=== PATIENT | female | born 1935 | race Caucasian/White ===

== ENCOUNTER → 2018-05-01 | Outpatient (CLI) | payer OTHER | END | disposition home or self-care (01) | LOC: CFH 12:46 | PROVIDERS: ATTEND Internal Medicine Hematology & Oncology | DX: C50.912 Malignant neoplasm of unspecified site of left female breast (principal) | CPT/HCPCS: 77066 ==

== ENCOUNTER → 2018-05-10 | Outpatient (CLI) | payer OTHER | END | disposition home or self-care (01) | LOC: CFH 13:33 | PROVIDERS: ATTEND Internal Medicine Hematology & Oncology | DX: C50.412 Malignant neoplasm of upper-outer quadrant of left female breast (principal) ==

== ENCOUNTER 2018-06-21 04:01 | Inpatient (IN) | payer MEDICARE, OTHER ==
[~2018-06-21] VITALS: Ht 152.4 cm; Wt 61.9 kg
[2018-06-21] MEDS ORDERED: ASPIRIN 325 MG TABLET ONE (04:16)
[2018-06-21] MEDS ORDERED: LOSA50TA7 PO (04:25)
[2018-06-21] MEDS ORDERED: LEVO88TA4 PO (04:25)
[2018-06-21] MEDS ORDERED: ATEN25TA PO (04:25)
[2018-06-21 04:31] LABS: BASOPHILS # (AUTO) 0.03 x10^3/uL (0-0.1); BASOPHILS % (AUTO) 0 % (0-1); EOSINOPHILS # (AUTO) 0.01 x10^3/uL (0-0.4); EOSINOPHILS % (AUTO) 0 % (1-7); LYMPHOCYTES # (AUTO) 1.98 x10^3/uL (1-3.4); LYMPHOCYTES % (AUTO) 21 % (22-44); MD NO; MEAN CORPUSCULAR HEMOGLOBIN 30.3 pg (27.0-34.8); MEAN CORPUSCULAR HGB CONC 32.5 g/dL (32.4-35.8); MEAN CORPUSCULAR VOLUME 93.1 fL (80-100); MEAN PLATELET VOLUME 9.4 fL (7.4-10.4); MONOCYTES # (AUTO) 0.64 x10^3/uL (0.2-0.8); MONOCYTES % (AUTO) 7 % (2-9); NEUTROPHILS # (AUTO) 6.75 x10^3/uL (1.8-6.8); NEUTROPHILS % (AUTO) 72 % (42-75); PLATELET COUNT 245 x10^3/uL (130-400); RED CELL DISTRIBUTION WIDTH 15.8 % (9.6-15.2)
[2018-06-21 04:41] LABS: INTERNATIONAL NORMALIZED RATIO 1.24 (0.93-1.1)
[2018-06-21 04:44] LABS: ALANINE AMINOTRANSFERASE 58 U/L (12-78); ALBUMIN 3.8 g/dL (3.4-5.0); ANION GAP 12 mmol/L (5-15); CALCIUM 9.1 mg/dL (8.5-10.1); CHLORIDE 98 mmol/L (98-107); CREATININE 1.82 mg/dL (0.55-1.02)
[2018-06-21] MEDS ORDERED: MIDAZOLAM 1 MG/ML, 2ML ONE (04:48)
[2018-06-21] MEDS ORDERED: VERAPAMIL 2.5 MG/ML, 2ML ONE (04:48)
[2018-06-21] MEDS ORDERED: BIVALIRUDIN 250 MG ONE (04:48)
[2018-06-21] MEDS ORDERED: HEPARIN 1,000 UNITS/ML, 10ML ONE (04:48)
[2018-06-21] MEDS ORDERED: NITROGLYCERIN 5 MG/ML, 10ML ONE (04:48)
[2018-06-21] MEDS ORDERED: TICAGRELOR 90 MG TABLET ONE (04:48)
[2018-06-21] MEDS ORDERED: FENTANYL PF 100 MCG/2ML ONE (04:48)
[2018-06-21 04:49] LABS: ALKALINE PHOSPHATASE 65 U/L (45-117)
[2018-06-21 04:50] LABS: TROPONIN I 0.123 ng/mL (0.000-0.045)
[2018-06-21] MEDS ORDERED: FUROSEMIDE 40 MG/4 ML ONE (05:15)
[2018-06-21] MEDS ORDERED: hydrALAzine 20 MG/ML, 1ML ONE (05:18)
[2018-06-21] MEDS ORDERED: ACETAMINOPHEN 325 MG TABLET PO PRN (05:30)
[2018-06-21] MEDS ORDERED: ZOLPIDEM 5MG TABLET PO PRN (05:30)
[2018-06-21] MEDS ORDERED: hydrALAzine 20 MG/ML, 1ML IV PRN (05:30)
[2018-06-21] MEDS ORDERED: FUROSEMIDE 40 MG TABLET ONE (08:08)
[2018-06-21] MEDS ORDERED: CARVEDILOL 12.5 MG TABLET ONE (08:08)
[2018-06-21] MEDS: LOSARTAN 50MG TABLET PO SCH ×2 (08:14→20:10)
[2018-06-21] MEDS: ASPIRIN 81 MG TABLET EC PO SCH (08:14)
[2018-06-21] MEDS: CARVEDILOL 6.25 MG TABLET PO SCH ×2 (08:27→18:23)
[2018-06-21] MEDS: FUROSEMIDE 40 MG TABLET PO SCH (08:27)
[2018-06-21] MEDS ORDERED: METOPROLOL TARTRATE 50 MG TABLET PO ONE (09:00)
[2018-06-21] MEDS ORDERED: LOSARTAN 50MG TABLET PO SCH (09:00)
[2018-06-21] MEDS ORDERED: FUROSEMIDE 40 MG/4 ML IV SCH (09:00)
[2018-06-22 04:35] VITALS: BP 131/58
[2018-06-22 05:05] LABS: CHLORIDE 95 mmol/L (98-107)
[2018-06-22 05:10] LABS: ANION GAP 11 mmol/L (5-15); CALCIUM 8.5 mg/dL (8.5-10.1); CREATININE 1.86 mg/dL (0.55-1.02)
[2018-06-22] MEDS: CARVEDILOL 6.25 MG TABLET PO SCH ×2 (05:39→18:02)
[2018-06-22] MEDS: LOSARTAN 50MG TABLET PO SCH ×2 (07:55→20:18)
[2018-06-22] MEDS: ASPIRIN 81 MG TABLET EC PO SCH (07:55)
[2018-06-22] MEDS: FUROSEMIDE 40 MG TABLET PO SCH (07:55)
[2018-06-22 10:21] VITALS: BP 124/72
[2018-06-22 12:55] VITALS: BP 154/87
[2018-06-22 18:54] VITALS: BP 106/66
[2018-06-22 20:15] VITALS: BP 133/73
[2018-06-23 00:46] VITALS: BP 146/73
[2018-06-23 06:00] LABS: ANION GAP 6 mmol/L (5-15); CALCIUM 8.4 mg/dL (8.5-10.1); CHLORIDE 96 mmol/L (98-107); CREATININE 1.73 mg/dL (0.55-1.02)
[2018-06-23 06:30] VITALS: BP 147/78
[2018-06-23] MEDS: CARVEDILOL 6.25 MG TABLET PO SCH ×2 (06:34→21:40)
[2018-06-23 07:26] VITALS: BP 136/79
[2018-06-23] MEDS: LOSARTAN 50MG TABLET PO SCH ×2 (07:26→21:40)
[2018-06-23] MEDS: ASPIRIN 81 MG TABLET EC PO SCH (07:26)
[2018-06-23] MEDS: FUROSEMIDE 40 MG TABLET PO SCH (07:26)
[2018-06-23] MEDS ORDERED: POTASSIUM CHLORIDE 20 MEQ TAB.ER.PRT PO ONE (09:30)
[2018-06-23 13:50] VITALS: BP 131/83
[2018-06-23 18:58] VITALS: BP 131/64
[2018-06-23 21:38] VITALS: BP 150/86
[2018-06-24] VITALS (8 sets, daily range): BP systolic 90–144; BP diastolic 59–82
[2018-06-24] MEDS: CARVEDILOL 6.25 MG TABLET PO SCH ×2 (05:36→18:10)
[2018-06-24] MEDS: ASPIRIN 81 MG TABLET EC PO SCH (08:55)
[2018-06-24] MEDS: FUROSEMIDE 40 MG TABLET PO SCH (08:55)
[2018-06-24] MEDS: LOSARTAN 50MG TABLET PO SCH ×2 (08:56→20:05)
[2018-06-25 01:08] VITALS: BP 110/71
[2018-06-25] MEDS: CARVEDILOL 6.25 MG TABLET PO SCH (04:34)
[2018-06-25 07:33] VITALS: BP 99/64
[2018-06-25 09:25] VITALS: BP 100/66
[2018-06-25] MEDS: FUROSEMIDE 40 MG TABLET PO SCH (09:33)
[2018-06-25] MEDS: LOSARTAN 50MG TABLET PO SCH (09:33)
[2018-06-25] MEDS: ASPIRIN 81 MG TABLET EC PO SCH (09:33)
[2018-06-25] MEDS ORDERED: ASPI-621 PO (10:48)
[2018-06-25] MEDS ORDERED: POTA8CAP PO (10:48)
[2018-06-25] MEDS ORDERED: CARV6.2512 PO (10:48)
[2018-06-25] MEDS ORDERED: LOSA50TA7 PO (10:48)
[2018-06-25] MEDS ORDERED: FURO20TA3 PO (10:48)
[2018-06-25] MEDS ORDERED: ATOR10TA9 PO (10:56)
== END 2018-06-25 15:11 | disposition home or self-care (01) | DRG 286 ==
LOC: ED 04:16 → MERGE 04:16 → EDIP 04:21 → CCU 05:46 → 5SO 06-22 10:12
PROVIDERS: ADMIT Internal Medicine; ATTEND Internal Medicine
PROC: 4A023N7 Measurement of Cardiac Sampling and Pressure, Left Heart, Percutaneous Approach (ICD-10-PCS; principal; 2018-06-21)
PROC: B2111ZZ Fluoroscopy of Multiple Coronary Arteries using Low Osmolar Contrast (ICD-10-PCS; 2018-06-21)
PROC: B2151ZZ Fluoroscopy of Left Heart using Low Osmolar Contrast (ICD-10-PCS; 2018-06-21)
DX: I11.0 Hypertensive heart disease with heart failure (principal); I50.21 Acute systolic (congestive) heart failure; I42.9 Cardiomyopathy, unspecified; I25.10 Atherosclerotic heart disease of native coronary artery without angina pectoris; E03.9 Hypothyroidism, unspecified; N28.9 Disorder of kidney and ureter, unspecified; E78.5 Hyperlipidemia, unspecified; I34.0 Nonrheumatic mitral (valve) insufficiency; I27.20 Pulmonary hypertension, unspecified; Z87.891 Personal history of nicotine dependence; D15.1 Benign neoplasm of heart
CPT/HCPCS: 36415; 71045; 80048; 80053; 83605; 83880; 84484; 85025; 85610; 87081; 93005; 93306; 93458; 97162; 99156; 99291; C1760; C1769; C1894; G0378; J0583; J1644; J1940; J2250; J3010; C1887; J0360; Q9967

== ENCOUNTER 2018-06-28 15:42 | Inpatient (IN) | payer OTHER ==
[~2018-06-28] VITALS: Ht 154.9 cm; Wt 64.3 kg
[~2018-06-28 15:42] MED LIST: ASPI81TA45 PO; ATEN25TA PO; ATOR10TA9 PO; CARV6.2512 PO; FURO20TA3 PO; LEVO88TA4 PO; LOSA50TA7 PO; POTA8CAP PO
[2018-06-28] MEDS ORDERED: SODIUM CHLORIDE FLUSH 10ML SYR IVF ONE (16:00)
[2018-06-28 16:15] LABS: MEAN CORPUSCULAR HEMOGLOBIN 30.3 pg (27.0-34.8); MEAN CORPUSCULAR HGB CONC 32.6 g/dL (32.4-35.8); MEAN CORPUSCULAR VOLUME 93.1 fL (80-100); MEAN PLATELET VOLUME 8.9 fL (7.4-10.4); PLATELET COUNT 228 x10^3/uL (130-400); RED BLOOD COUNT 4.09 x10^6/uL (3.82-5.3); RED CELL DISTRIBUTION WIDTH 16.2 % (9.6-15.2)
[2018-06-28 16:27] LABS: ANION GAP 11 mmol/L (5-15); CALCIUM 8.8 mg/dL (8.5-10.1); CHLORIDE 92 mmol/L (98-107); CREATININE 1.25 mg/dL (0.55-1.02)
[2018-06-28 16:33] LABS: MD YES
[2018-06-28 16:35] LABS: TROPONIN I 0.926 ng/mL (0.000-0.045)
[2018-06-28 16:36] LABS: BAND#(MANUAL) 2.94 x10^3/uL; BANDS%(MANUAL) 14 % (0-7); LYMPH#(MANUAL) 0.84 x10^3/uL (1-3.4); LYMPHS% (MANUAL) 4 % (22-44); MONOS#(MANUAL) 1.47 x10^3/uL (0.3-2.7); MONOS% (MANUAL) 7 % (2-9); SEG#(MANUAL) 15.75 x10^3/uL (1.8-6.8); SEGS% (MANUAL) 75 % (42-75)
[2018-06-28 16:37] LABS: <PLATELET ESTIMATE> ADEQUATE; <PLT MORPHOLOGY> NORMAL PLT MORPH; ANISOCYTOSIS 1+
[2018-06-28] MEDS ORDERED: SODIUM CHLORIDE 0.9% 1,000 ML IV ONE ×2 (16:55→17:19)
[2018-06-28] MEDS ORDERED: SODIUM CHLORIDE FLUSH 10ML SYR IVF PRN (17:30)
[2018-06-28] MEDS ORDERED: SODIUM CHLORIDE 0.9% 1,000 ML IV SCH (17:44)
[2018-06-28] MEDS ORDERED: MAALOX/HYOSCYAMINE/LIDOCAINE 45 ML BTL PO PRN (18:00)
[2018-06-28] MEDS ORDERED: ACETAMINOPHEN 325 MG TABLET PO PRN (18:00)
[2018-06-28] MEDS ORDERED: PHARMACY MAY ADJ FOR RENAL FX MC PRN (18:00)
[2018-06-28] MEDS ORDERED: hydrALAzine 20 MG/ML, 1ML IVPush PRN (18:00)
[2018-06-28 18:07] LABS: CULTURE INDICATED? YES; MICROSCOPIC INDICATED
[2018-06-28 18:43] VITALS: BP 124/76
[2018-06-28 21:25] LABS: TROPONIN I 0.707 ng/mL (0.000-0.045)
[2018-06-28] MEDS: CEFTRIAXONE PMX 1GM/50ML 50 ML IV SCH (22:39)
[2018-06-28] MEDS: ATORVASTATIN 10 MG TABLET PO SCH (22:39)
[2018-06-28] MEDS: PANTOPRAZOLE 40 MG IV IVPush SCH (22:39)
[2018-06-28] MEDS: HEPARIN 5,000 UNITS/ML, 1ML SQ SCH (22:40)
[2018-06-28] MEDS: CARVEDILOL 6.25 MG TABLET PO SCH (22:45)
[2018-06-29] VITALS (9 sets, daily range): BP systolic 96–126; BP diastolic 62–79
[2018-06-29] MEDS: CARVEDILOL 6.25 MG TABLET PO SCH ×2 (06:09→18:01)
[2018-06-29 07:45] LABS: CHLORIDE 94 mmol/L (98-107)
[2018-06-29 07:51] LABS: ANION GAP 10 mmol/L (5-15); CALCIUM 8.7 mg/dL (8.5-10.1); CREATININE 1.33 mg/dL (0.55-1.02)
[2018-06-29 07:54] LABS: MEAN CORPUSCULAR HEMOGLOBIN 30.7 pg (27.0-34.8); MEAN CORPUSCULAR HGB CONC 33.1 g/dL (32.4-35.8); MEAN CORPUSCULAR VOLUME 92.9 fL (80-100); MEAN PLATELET VOLUME 8.9 fL (7.4-10.4); PLATELET COUNT 199 x10^3/uL (130-400); RED BLOOD COUNT 4.02 x10^6/uL (3.82-5.3)
[2018-06-29 08:48] LABS: MD YES
[2018-06-29 08:52] LABS: <RBC MORPHOLOGY> NORMAL; BAND#(MANUAL) 2.76 x10^3/uL; BANDS%(MANUAL) 14 % (0-7); LYMPH#(MANUAL) 0.79 x10^3/uL (1-3.4); LYMPHS% (MANUAL) 4 % (22-44); MONOS#(MANUAL) 0.79 x10^3/uL (0.3-2.7); MONOS% (MANUAL) 4 % (2-9); SEG#(MANUAL) 15.37 x10^3/uL (1.8-6.8); SEGS% (MANUAL) 78 % (42-75)
[2018-06-29 08:53] LABS: <PLATELET ESTIMATE> ADEQUATE; <PLT MORPHOLOGY> NORMAL PLT MORPH
[2018-06-29] MEDS: LOSARTAN 50MG TABLET PO SCH (10:55)
[2018-06-29] MEDS: ASPIRIN 81 MG TABLET EC PO SCH (10:55)
[2018-06-29] MEDS: LEVOTHYROXINE 88 MCG TABLET PO SCH (10:56)
[2018-06-29] MEDS: HEPARIN 5,000 UNITS/ML, 1ML SQ SCH ×2 (10:57→20:26)
[2018-06-29] MEDS: PANTOPRAZOLE 40 MG IV IVPush SCH ×2 (10:58→20:26)
[2018-06-29] MEDS: DILTIAZEM 5 MG/ML, 5ML IVPush ONE ×2 (13:00→14:24)
[2018-06-29] MEDS: DILTIAZEM 125 MG in SODIUM CHLORIDE 0.9% 100 ML IV SCH ×2 (13:00→14:24)
[2018-06-29 14:03] LABS: CLOSTRIDIUM DIFFICILE ANTIGEN NEGATIVE; CLOSTRIDIUM DIFFICILE TOXIN NEGATIVE (Negative)
[2018-06-29] MEDS ORDERED: DIGOXIN 0.25 MG/ML, 2ML IVPush ONE (14:30)
[2018-06-29] MEDS: ATORVASTATIN 10 MG TABLET PO SCH (20:26)
[2018-06-29] MEDS: CEFTRIAXONE PMX 1GM/50ML 50 ML IV SCH (23:36)
[2018-06-30 01:17] VITALS: BP 115/68
[2018-06-30 06:05] VITALS: BP 117/77
[2018-06-30] MEDS: CARVEDILOL 6.25 MG TABLET PO SCH ×2 (06:09→17:39)
[2018-06-30] MEDS: HEPARIN 5,000 UNITS/ML, 1ML SQ SCH ×3 (06:09→21:33)
[2018-06-30 07:00] VITALS: BP 106/63
[2018-06-30 08:39] LABS: BASOPHILS # (AUTO) 0.03 x10^3/uL (0-0.1); BASOPHILS % (AUTO) 0 % (0-1); EOSINOPHILS # (AUTO) 0.05 x10^3/uL (0-0.4); EOSINOPHILS % (AUTO) 0 % (1-7); LYMPHOCYTES # (AUTO) 1.16 x10^3/uL (1-3.4); LYMPHOCYTES % (AUTO) 7 % (22-44); MD NO; MEAN CORPUSCULAR HEMOGLOBIN 30.4 pg (27.0-34.8); MEAN CORPUSCULAR HGB CONC 32.5 g/dL (32.4-35.8); MEAN CORPUSCULAR VOLUME 93.4 fL (80-100); MEAN PLATELET VOLUME 8.8 fL (7.4-10.4); MONOCYTES % (AUTO) 5 % (2-9); NEUTROPHILS # (AUTO) 15.52 x10^3/uL (1.8-6.8); NEUTROPHILS % (AUTO) 88 % (42-75); PLATELET COUNT 202 x10^3/uL (130-400); RED CELL DISTRIBUTION WIDTH 16.2 % (9.6-15.2)
[2018-06-30 08:52] LABS: ALANINE AMINOTRANSFERASE 17 U/L (12-78); ALBUMIN 2.4 g/dL (3.4-5.0); ANION GAP 8 mmol/L (5-15); CALCIUM 8.5 mg/dL (8.5-10.1); CHLORIDE 96 mmol/L (98-107); CREATININE 1.22 mg/dL (0.55-1.02)
[2018-06-30 08:54] LABS: ALKALINE PHOSPHATASE 65 U/L (45-117); BILIRUBIN,TOTAL 0.5 mg/dL (0.2-1.0)
[2018-06-30] MEDS: LEVOTHYROXINE 88 MCG TABLET PO SCH (10:41)
[2018-06-30] MEDS: PANTOPRAZOLE 40 MG IV IVPush SCH ×2 (10:41→21:33)
[2018-06-30] MEDS: ASPIRIN 81 MG TABLET EC PO SCH (10:41)
[2018-06-30] MEDS: LOSARTAN 50MG TABLET PO SCH (10:41)
[2018-06-30 15:47] VITALS: BP 109/71
[2018-06-30 19:01] VITALS: BP 111/75
[2018-06-30] MEDS: ATORVASTATIN 10 MG TABLET PO SCH (21:33)
[2018-06-30] MEDS: CEFTRIAXONE PMX 1GM/50ML 50 ML IV SCH (22:38)
[2018-07-01 01:40] VITALS: BP 117/69
[2018-07-01 05:12] LABS: CHLORIDE 98 mmol/L (98-107)
[2018-07-01 05:21] LABS: ALANINE AMINOTRANSFERASE 15 U/L (12-78); ALKALINE PHOSPHATASE 60 U/L (45-117); ANION GAP 10 mmol/L (5-15); BILIRUBIN,TOTAL 0.4 mg/dL (0.2-1.0); CALCIUM 8.3 mg/dL (8.5-10.1); CREATININE 1.23 mg/dL (0.55-1.02); TOTAL PROTEIN 5.5 g/dL (6.4-8.2)
[2018-07-01 05:32] VITALS: BP 136/78
[2018-07-01] MEDS: CARVEDILOL 6.25 MG TABLET PO SCH ×2 (05:35→17:47)
[2018-07-01] MEDS: HEPARIN 5,000 UNITS/ML, 1ML SQ SCH ×3 (05:35→21:07)
[2018-07-01 07:13] LABS: MEAN CORPUSCULAR HEMOGLOBIN 30.7 pg (27.0-34.8); MEAN CORPUSCULAR HGB CONC 32.5 g/dL (32.4-35.8); MEAN CORPUSCULAR VOLUME 94.4 fL (80-100); PLATELET COUNT 223 x10^3/uL (130-400); RED BLOOD COUNT 3.98 x10^6/uL (3.82-5.3); RED CELL DISTRIBUTION WIDTH 16.4 % (9.6-15.2)
[2018-07-01 07:14] VITALS: BP 111/75
[2018-07-01 08:03] LABS: MD YES
[2018-07-01 08:06] LABS: BAND#(MANUAL) 1.71 x10^3/uL; BANDS%(MANUAL) 11 % (0-7); LYMPH#(MANUAL) 0.62 x10^3/uL (1-3.4); LYMPHS% (MANUAL) 4 % (22-44); MONOS#(MANUAL) 0.78 x10^3/uL (0.3-2.7); MONOS% (MANUAL) 5 % (2-9); REACTIVE LYMPHS # (MANUAL) 0.16 x10^3/uL (0-0); REACTIVE LYMPHS % (MANUAL) 1 % (0-0); SEG#(MANUAL) 12.25 x10^3/uL (1.8-6.8); SEGS% (MANUAL) 79 % (42-75)
[2018-07-01 08:07] LABS: <PLATELET ESTIMATE> ADEQUATE; <PLT MORPHOLOGY> NORMAL PLT MORPH; ANISOCYTOSIS 1+
[2018-07-01] MEDS: PANTOPRAZOLE 40 MG IV IVPush SCH ×2 (10:54→21:08)
[2018-07-01] MEDS: LOSARTAN 50MG TABLET PO SCH (10:55)
[2018-07-01] MEDS: ASPIRIN 81 MG TABLET EC PO SCH (10:55)
[2018-07-01] MEDS: LEVOTHYROXINE 88 MCG TABLET PO SCH (10:55)
[2018-07-01] MEDS ORDERED: MAGNESIUM SULFATE PMX 2GM/50ML 50 ML IV ONE (11:00)
[2018-07-01 12:15] VITALS: BP 92/58
[2018-07-01 18:45] VITALS: BP 111/69
[2018-07-01] MEDS: ATORVASTATIN 10 MG TABLET PO SCH (21:08)
[2018-07-01] MEDS: CEFTRIAXONE PMX 1GM/50ML 50 ML IV SCH (22:38)
[2018-07-02 00:57] VITALS: BP 116/72
[2018-07-02 05:23] VITALS: BP 103/63
[2018-07-02] MEDS: CARVEDILOL 6.25 MG TABLET PO SCH ×2 (05:25→17:43)
[2018-07-02] MEDS: HEPARIN 5,000 UNITS/ML, 1ML SQ SCH ×3 (05:25→20:48)
[2018-07-02 06:33] LABS: ANION GAP 8 mmol/L (5-15); CALCIUM 8.4 mg/dL (8.5-10.1); CHLORIDE 95 mmol/L (98-107); CREATININE 1.25 mg/dL (0.55-1.02)
[2018-07-02 06:36] LABS: BASOPHILS # (AUTO) 0.02 x10^3/uL (0-0.1); BASOPHILS % (AUTO) 0 % (0-1); EOSINOPHILS # (AUTO) 0.26 x10^3/uL (0-0.4); EOSINOPHILS % (AUTO) 2 % (1-7); LYMPHOCYTES # (AUTO) 1.17 x10^3/uL (1-3.4); LYMPHOCYTES % (AUTO) 9 % (22-44); MD NO; MEAN CORPUSCULAR HGB CONC 33.3 g/dL (32.4-35.8); MEAN CORPUSCULAR VOLUME 93.1 fL (80-100); MEAN PLATELET VOLUME 9.1 fL (7.4-10.4); MONOCYTES # (AUTO) 1.08 x10^3/uL (0.2-0.8); MONOCYTES % (AUTO) 8 % (2-9); NEUTROPHILS # (AUTO) 10.48 x10^3/uL (1.8-6.8); NEUTROPHILS % (AUTO) 81 % (42-75); PLATELET COUNT 278 x10^3/uL (130-400); RED BLOOD COUNT 3.94 x10^6/uL (3.82-5.3); RED CELL DISTRIBUTION WIDTH 16.2 % (9.6-15.2)
[2018-07-02 07:10] VITALS: BP 107/70
[2018-07-02] MEDS: LOSARTAN 50MG TABLET PO SCH (09:14)
[2018-07-02] MEDS: ASPIRIN 81 MG TABLET EC PO SCH (09:14)
[2018-07-02] MEDS: LEVOTHYROXINE 88 MCG TABLET PO SCH (09:15)
[2018-07-02] MEDS: PANTOPRAZOLE 40 MG IV IVPush SCH ×2 (09:15→20:47)
[2018-07-02] MEDS ORDERED: CARV6.2512 PO (11:07)
[2018-07-02] MEDS ORDERED: CEFD300C37 PO (11:07)
[2018-07-02 13:25] VITALS: BP 106/63
[2018-07-02 18:47] VITALS: BP 102/60
[2018-07-02] MEDS: ATORVASTATIN 10 MG TABLET PO SCH (20:47)
[2018-07-02] MEDS: CEFTRIAXONE PMX 1GM/50ML 50 ML IV SCH (22:43)
[2018-07-03 03:09] VITALS: BP 127/74
[2018-07-03] MEDS: HEPARIN 5,000 UNITS/ML, 1ML SQ SCH ×2 (05:31→13:00)
[2018-07-03 05:37] VITALS: BP 118/74
[2018-07-03] MEDS: CARVEDILOL 6.25 MG TABLET PO SCH (05:37)
[2018-07-03 06:32] VITALS: BP 127/72
[2018-07-03] MEDS: PANTOPRAZOLE 40 MG IV IVPush SCH (08:23)
[2018-07-03] MEDS: ASPIRIN 81 MG TABLET EC PO SCH (08:24)
[2018-07-03] MEDS: LOSARTAN 50MG TABLET PO SCH (08:24)
[2018-07-03] MEDS: LEVOTHYROXINE 88 MCG TABLET PO SCH (08:24)
[2018-07-03] MEDS ORDERED: ANASTROZOLE 1 MG TABLET PO SCH (09:00)
[2018-07-03] MEDS ORDERED: CEFD300C37 PO (11:06)
[2018-07-03 11:34] LABS: BASOPHILS # (AUTO) 0.03 x10^3/uL (0-0.1); BASOPHILS % (AUTO) 1 % (0-1); EOSINOPHILS # (AUTO) 0.31 x10^3/uL (0-0.4); EOSINOPHILS % (AUTO) 5 % (1-7); LYMPHOCYTES # (AUTO) 1.23 x10^3/uL (1-3.4); LYMPHOCYTES % (AUTO) 18 % (22-44); MD NO; MEAN CORPUSCULAR HEMOGLOBIN 30.3 pg (27.0-34.8); MEAN CORPUSCULAR HGB CONC 32.6 g/dL (32.4-35.8); MEAN CORPUSCULAR VOLUME 92.9 fL (80-100); MEAN PLATELET VOLUME 8.5 fL (7.4-10.4); MONOCYTES # (AUTO) 0.62 x10^3/uL (0.2-0.8); MONOCYTES % (AUTO) 9 % (2-9); NEUTROPHILS # (AUTO) 4.53 x10^3/uL (1.8-6.8); NEUTROPHILS % (AUTO) 67 % (42-75); PLATELET COUNT 288 x10^3/uL (130-400); RED CELL DISTRIBUTION WIDTH 16.4 % (9.6-15.2)
[2018-07-03 11:43] LABS: ANION GAP 8 mmol/L (5-15); CALCIUM 8.2 mg/dL (8.5-10.1); CHLORIDE 98 mmol/L (98-107); CREATININE 1.28 mg/dL (0.55-1.02)
[2018-07-03 12:43] VITALS: BP 111/67
== END 2018-07-03 15:25 | DRG 872 ==
LOC: ED 17:43 → EDIP 17:44 → ED 18:03 → 4EST 18:32
PROVIDERS: ADMIT Internal Medicine; ATTEND Internal Medicine
DX: A41.9 Sepsis, unspecified organism (principal); E87.1 Hypo-osmolality and hyponatremia; I13.0 Hypertensive heart and chronic kidney disease with heart failure and stage 1 through stage 4 chronic kidney disease, or unspecified chronic kidney disease; I50.42 Chronic combined systolic (congestive) and diastolic (congestive) heart failure; N39.0 Urinary tract infection, site not specified; E44.1 Mild protein-calorie malnutrition; I11.0 Hypertensive heart disease with heart failure; B96.20 Unspecified Escherichia coli [E. coli] as the cause of diseases classified elsewhere; D15.1 Benign neoplasm of heart; E86.1 Hypovolemia; E87.6 Hypokalemia; I34.0 Nonrheumatic mitral (valve) insufficiency; I48.0 Paroxysmal atrial fibrillation; N18.9 Chronic kidney disease, unspecified; I25.2 Old myocardial infarction; Z91.81 History of falling
CPT/HCPCS: 36415; 71045; 80048; 80053; 81001; 82040; 83605; 83690; 83735; 84100; 84145; 84484; 85025; 87040; 87077; 87086; 87186; 87324; 93005; 99285; G0378; J0696; J1644; C9113; J3475; J7030